=== PATIENT | female | born 1970 | race Two or more races ===

== ENCOUNTER 2018-12-24 16:08 | Emergency (ER) | payer MEDICAID, OTHER ==
[~2018-12-24] VITALS: Ht 175.3 cm; Wt 90.7 kg
[2018-12-24 16:36] VITALS: BP 147/98
== END 2018-12-25 06:00 | disposition left against medical advice (07) ==
LOC: EDBD 16:08 → ER 16:08
DX: R44.3 Hallucinations, unspecified (principal); Z53.21 Procedure and treatment not carried out due to patient leaving prior to being seen by health care provider